=== PATIENT | female | born 2000 | race Hispanic/Latino ===

== ENCOUNTER 2022-01-26 08:15 | Inpatient (IN) | payer OTHER ==
[~2022-01-26 08:15] MED LIST: Bupivacaine 0.5% 10 ML VIAL ONE; Bupivacaine/Epinephrine 0.25% 30 ML VIAL ONE; Lidocaine 2% 10 ML INJ ONE
[2022-01-26] MEDS ORDERED: hydrALAZINE 20 MG/ML VIAL SLOW IVP PRN ×2 (10:07→13:29)
[2022-01-26 10:10] VITALS: BMI 29.2
[2022-01-26] MEDS ORDERED: Lactated Ringer's 1,000 ML IV SCH (10:30)
[2022-01-26 10:34] LABS: Fetal Membranes Rupture No Membranes Rupture (No Rupture)
[2022-01-26] MEDS ORDERED: Carboprost 250 MCG/ML AMP IM PRN (13:29)
[2022-01-26] MEDS ORDERED: Misoprostol 200 MCG TAB PR PRN (13:29)
[2022-01-26] MEDS ORDERED: Lidocaine 1% (PF) 30 ML VIAL SC PRN (13:29)
[2022-01-26] MEDS ORDERED: Diphenoxylate HCl/Atropine Tablet PO PRN (13:29)
[2022-01-26] MEDS ORDERED: Methylergonovine 0.2 MG/ML VIAL IM PRN (13:29)
[2022-01-26] MEDS ORDERED: Promethazine HCl 25 MG/ML VIAL IM PRN ×2 (13:29→22:00)
[2022-01-26] MEDS ORDERED: Ondansetron PF 4 MG/2 ML Vial IVP PRN ×2 (13:29→22:00)
[2022-01-26] MEDS ORDERED: NS w/ Oxytocin 30 units 500 ML IV SCH ×2 (13:30)
[2022-01-26 14:24] LABS: Hemoglobin 11.3 g/dL (12.0-15.5); Mean Corpuscular HGB CONC 32.1 g/dL (32.0-36.0); Mean Corpuscular Hemoglobin 26.6 pg (27.0-33.0); Mean Corpuscular Volume 82.8 fl (81.6-98.3); Mean Platelet Volume 10.7 fl (7.4-10.4); Platelet Count 276 10x3/uL (150-450); RBC Distribution Width 18.2 % (11.5-14.5); Red Blood Cell (RBC) Count 4.25 10x6/uL (3.90-5.03); White Blood Cell (WBC) Count 8.7 10x3/uL (3.5-10.5)
[2022-01-26] MEDS: Misoprostol 100 MCG TAB VAG SCH (14:44)
[2022-01-26 15:00] LABS: Hep B Surf Ag Non-Reactive S/CO (NonReactive); Syphilis Antibody Nonreactive (Nonreactive); Syphilis Antibody Index 0.07 S/CO (<1.00 Non-Reactive)
[2022-01-26 15:02] LABS: HBSAg Index 0.16 S/CO (0-0.99)
[2022-01-26 15:10] LABS: SARS-CoV-2 NAA Rapid Test Not Detected (NotDetected)
[2022-01-26] MEDS ORDERED: Acetaminophen 500 MG TAB PO SCH (18:15)
[2022-01-26] MEDS: Butorphanol Tartrate 1 MG/ML VIAL SLOW IVP PRN ×2 (19:39→21:01)
[2022-01-26] MEDS ORDERED: Fentanyl 2 mcg/Bup 0.1% Cadd 100 ML ONE (21:08)
[2022-01-26] MEDS: Lactated Ringer's 1,000 ML IV SCH (21:39)
[2022-01-26] MEDS ORDERED: Acetaminophen 325 MG TAB PO PRN (22:00)
[2022-01-26] MEDS ORDERED: diphenhydrAMINE 50 MG/ML VIAL IVP PRN (22:00)
[2022-01-26] MEDS ORDERED: Lactated Ringer's 500 ML IV PRN (22:00)
[2022-01-26] MEDS ORDERED: Moisturizing Cream (Eucerin) 113 GM JAR TOP PRN (22:00)
[2022-01-26] MEDS ORDERED: Communication Order-Pharmacy FS SCH (22:00)
[2022-01-26] MEDS ORDERED: ePHEDrine Sulfate 50 MG/10 ML VIAL SLOW IVP PRN (22:00)
[2022-01-26] MEDS ORDERED: Naloxone HCl 0.4 mg/ml Vial IVP PRN ×2 (22:00)
[2022-01-27] MEDS: Fentanyl 2 mcg/Bupivacaine 0.1% Cassette 100 ML EPIDURAL SCH ×2 (04:16→11:05)
[2022-01-27] MEDS: Lactated Ringer's 1,000 ML IV SCH ×2 (05:37→19:53)
[2022-01-27] MEDS ORDERED: Fentanyl 2 mcg/Bup 0.1% Cadd 100 ML ONE (11:05)
[2022-01-27] MEDS ORDERED: Ampicillin 2 GM VIAL ONE (11:06)
[2022-01-27] MEDS ORDERED: ceFAZolin 2 GM/Dextrose 50 ML IVPB ONE ×2 (11:43→16:49)
[2022-01-27] MEDS ORDERED: Azithromycin 500 MG VIAL ONE (11:43)
[2022-01-27] MEDS ORDERED: Ampicillin 2 GM in Sodium Chloride 0.9% 100 ML IVPB SCH (12:00)
[2022-01-27] MEDS ORDERED: AMPicillin 2 MG in Syringe 0 ML SLOW IVP SCH (12:00)
[2022-01-27] MEDS ORDERED: Naloxone HCl 0.4 mg/ml Vial IV PRN (12:08)
[2022-01-27] MEDS ORDERED: Ondansetron PF 4 MG/2 ML Vial IVP PRN (12:08)
[2022-01-27] MEDS ORDERED: Promethazine HCl 25 MG/ML VIAL IM PRN (12:08)
[2022-01-27] MEDS ORDERED: Moisturizing Cream (Eucerin) 113 GM JAR TOP PRN (12:08)
[2022-01-27] MEDS ORDERED: diphenhydrAMINE 50 MG/ML VIAL IVP PRN (12:08)
[2022-01-27] MEDS ORDERED: Promethazine HCl 25 MG SUPP PR PRN (12:08)
[2022-01-27] MEDS ORDERED: Naloxone HCl 0.4 mg/ml Vial IVP PRN ×2 (12:08)
[2022-01-27] MEDS ORDERED: Fentanyl 100 MCG/2 ML VIAL SLOW IVP PRN (12:09)
[2022-01-27] MEDS ORDERED: Meperidine HCl/PF 25 MG/ML VIAL SLOW IVP PRN (12:09)
[2022-01-27] MEDS ORDERED: Ondansetron HCl/PF 4 MG/2 ML Vial IVP PRN (12:09)
[2022-01-27] MEDS ORDERED: Communication Order-Pharmacy FS SCH (12:15)
[2022-01-27] MEDS ORDERED: Ketorolac Tromethamine 30 MG/ML VIAL IVP SCH (12:15)
[2022-01-27] MEDS ORDERED: Phenylephrine 40 MG/NS 250 ML 250 ML ONE (12:19)
[2022-01-27] MEDS ORDERED: Morphine PF 10 MG/10 ML VIAL ONE (12:20)
[2022-01-27] MEDS ORDERED: Oxytocin 10 UNITS/ML VIAL ONE (12:26)
[2022-01-27] MEDS ORDERED: Ondansetron PF 4 MG/2 ML Vial ONE (12:27)
[2022-01-27] MEDS ORDERED: Esmolol 100 MG/10 ML VIAL ONE (12:27)
[2022-01-27] MEDS ORDERED: Dexamethasone 4 mg/ml Vial ONE (12:27)
[2022-01-27] MEDS ORDERED: Azithromycin 500 MG in Sodium Chloride 0.9% 250 ML 250 ML IVPB SCH (12:30)
[2022-01-27] MEDS ORDERED: Ketorolac Tromethamine 30 MG/ML VIAL ONE (13:07)
[2022-01-27] MEDS ORDERED: Famotidine/PF 20 mg/2ml Vial ONE (13:21)
[2022-01-27] MEDS ORDERED: Methylergonovine 0.2 MG/ML VIAL ONE (13:21)
[2022-01-27] MEDS ORDERED: hydrALAZINE 20 MG/ML VIAL SLOW IVP PRN (15:40)
[2022-01-27] MEDS ORDERED: Simethicone Chewable 80 MG TAB PO PRN (15:40)
[2022-01-27] MEDS ORDERED: HYDROcodone/Acetaminophen 5/325 mg Tablet PO PRN (15:40)
[2022-01-27] MEDS ORDERED: NS w/ Oxytocin 30 units 500 ML IV SCH (15:40)
[2022-01-27] MEDS ORDERED: Boostrix 0.5 ML (Tdap) VIAL IM ONE (15:40)
[2022-01-27] MEDS ORDERED: Lanolin Ointment 7 GM TUBE TOP PRN (15:40)
[2022-01-27] MEDS: Ketorolac Tromethamine 30 MG/ML VIAL IVP PRN (17:57)
[2022-01-27] MEDS ORDERED: ceFAZolin 2 GM/Dextrose 50 ML 2 GM in Premix Bag 1 BAG IVPB SCH (18:00)
[2022-01-27] MEDS: Lactated Ringer's 500 ML IV SCH ×4 (19:43→19:46)
[2022-01-27] MEDS: Misoprostol 100 MCG TAB VAG SCH ×2 (19:53→19:54)
[2022-01-27] MEDS: Ferrous Sulfate 325 MG TAB PO SCH (21:46)
[2022-01-27] MEDS: Docusate 100 MG CAP PO SCH (21:46)
[2022-01-28] MEDS: Ketorolac Tromethamine 30 MG/ML VIAL IVP PRN (03:44)
[2022-01-28 04:55] LABS: Hemoglobin 7.9 g/dL (12.0-15.5); Mean Corpuscular HGB CONC 32.1 g/dL (32.0-36.0); Mean Corpuscular Hemoglobin 26.5 pg (27.0-33.0); Mean Corpuscular Volume 82.6 fl (81.6-98.3); Mean Platelet Volume 9.9 fl (7.4-10.4); Platelet Count 210 10x3/uL (150-450); RBC Distribution Width 18.6 % (11.5-14.5); Red Blood Cell (RBC) Count 2.98 10x6/uL (3.90-5.03)
[2022-01-28] MEDS: Docusate 100 MG CAP PO SCH ×2 (08:43→21:49)
[2022-01-28] MEDS: Ferrous Sulfate 325 MG TAB PO SCH ×2 (08:43→21:49)
[2022-01-28] MEDS: Prenatal Vitamin 1 TAB PO SCH (08:43)
[2022-01-28] MEDS: HYDROcodone/Acetaminophen 5/325 mg Tablet PO PRN ×3 (08:44→19:37)
[2022-01-28] MEDS: Ibuprofen 800 MG TAB PO SCH ×2 (13:01→21:49)
[2022-01-29] MEDS: HYDROcodone/Acetaminophen 5/325 mg Tablet PO PRN ×2 (00:58→05:44)
[2022-01-29] MEDS: Ibuprofen 800 MG TAB PO SCH (05:43)
[2022-01-29] MEDS: Ferrous Sulfate 325 MG TAB PO SCH (08:27)
[2022-01-29] MEDS: Prenatal Vitamin 1 TAB PO SCH (08:27)
[2022-01-29] MEDS: Docusate 100 MG CAP PO SCH (08:27)
[2022-01-29 11:23] VITALS: BP 135/70; TEMP 97.9
== END 2022-01-29 12:45 | disposition home or self-care (01) | DRG 786 ==
LOC: CSHLD/OP 08:15 → CSHLD 21:14 → CSHPP 01-27 15:11
PROVIDERS: ADMIT Obstetrics & Gynecology; ATTEND Obstetrics & Gynecology
PROC: 10D00Z1 Extraction of Products of Conception, Low, Open Approach (ICD-10-PCS; principal; 2022-01-27)
PROC: 3E0P7VZ Introduction of Hormone into Female Reproductive, Via Natural or Artificial Opening (ICD-10-PCS; 2022-01-27)
DX: O41.03X0 Oligohydramnios, third trimester, not applicable or unspecified (principal); O41.1230 Chorioamnionitis, third trimester, not applicable or unspecified; O33.9 Maternal care for disproportion, unspecified; O76 Abnormality in fetal heart rate and rhythm complicating labor and delivery; Z20.822 Contact with and (suspected) exposure to COVID-19; Z3A.39 39 weeks gestation of pregnancy; Z37.0 Single live birth; Z90.49 Acquired absence of other specified parts of digestive tract; D64.9 Anemia, unspecified; O90.81 Anemia of the puerperium; O32.4XX0 Maternal care for high head at term, not applicable or unspecified; O62.1 Secondary uterine inertia; O77.0 Labor and delivery complicated by meconium in amniotic fluid; O32.8XX0 Maternal care for other malpresentation of fetus, not applicable or unspecified
CPT/HCPCS: 51702; 76819; 82805; 84112; 85027; 86780; 86850; 86900; 86901; 87340; 88307; 99285; J0290; J0360; J0595; J0690; J1100; J1885; J2210; J2274; J2405; J2590; J3490; J7120; S0028; U0002

== ENCOUNTER 2023-01-22 22:43 | Emergency (ER) | payer OTHER ==
[2023-01-22 23:53] LABS: #Eosinphils 0.3 10x3/uL (0.0-0.5); #Monocytes 0.7 10x3/uL (0.0-1.1); #Neutrophils 4.6 10x3/uL (1.5-8.4); %Basophils 0.5 % (0.0-2.0); %Eosinophils 3.6 % (0.0-6.0); %Lymphocytes 32.8 % (18.0-47.0); %Monocytes 8.5 % (0.0-10.0); %Neutrophils 54.5 % (40.0-75.0); Hemoglobin 12.5 g/dL (12.0-15.5); Mean Corpuscular HGB CONC 33.7 g/dL (32.0-36.0); Mean Corpuscular Hemoglobin 29.1 pg (27.0-33.0); Mean Corpuscular Volume 86.5 fl (81.6-98.3); Mean Platelet Volume 8.6 fl (7.4-10.4); Platelet Count 327 10x3/uL (150-450); RBC Distribution Width 12.6 % (11.5-14.5); Red Blood Cell (RBC) Count 4.29 10x6/uL (3.90-5.03); White Blood Cell (WBC) Count 8.5 10x3/uL (3.5-10.5)
== END 2023-01-23 00:57 | disposition home or self-care (01) ==
LOC: CSHERS 22:43
DX: O20.8 Other hemorrhage in early pregnancy (principal); Z3A.09 9 weeks gestation of pregnancy
CPT/HCPCS: 76856; 84702; 85025; 86900; 86901

== ENCOUNTER 2023-05-28 01:05 | Emergency (ER) | payer OTHER ==
[2023-05-28] MEDS ORDERED: Acetaminophen 500 MG TAB ONE (01:32)
[2023-05-28 01:48] LABS: #Eosinphils 0.2 10x3/uL (0.0-0.5); #Neutrophils 6.5 10x3/uL (1.5-8.4); %Basophils 0.3 % (0.0-2.0); %Eosinophils 1.8 % (0.0-6.0); %Lymphocytes 28.2 % (18.0-47.0); %Monocytes 9.2 % (0.0-10.0); %Neutrophils 59.9 % (40.0-75.0); Hematocrit 28.7 % (34.9-44.5); Hemoglobin 9.2 g/dL (12.0-15.5); Mean Corpuscular HGB CONC 32.1 g/dL (32.0-36.0); Mean Corpuscular Hemoglobin 26.7 pg (27.0-33.0); Mean Corpuscular Volume 83.2 fl (81.6-98.3); Mean Platelet Volume 9.4 fl (7.4-10.4); Platelet Count 357 10x3/uL (150-450); RBC Distribution Width 12.9 % (11.5-14.5); Red Blood Cell (RBC) Count 3.45 10x6/uL (3.90-5.03); White Blood Cell (WBC) Count 10.8 10x3/uL (3.5-10.5)
[2023-05-28 02:00] LABS: ALT (SGPT) 10 U/L (8-55); AST (SGOT) 14 U/L (5-34); Albumin 3.5 g/dL (3.5-5.0); Alkaline Phosphatase 79 U/L (40-110); Anion Gap 13 mmol/L (10-20); BUN (Urea Nitrogen) 8 mg/dL (7.0-18.7); Bilirubin, Total 0.3 mg/dL (0.2-1.2); Calc. Creatinine Clearance 0 mL/min (70-130); Calcium 8.5 mg/dL (7.8-10.44); Carbon Dioxide 21 mmol/L (22-29); Chloride 107 mmol/L (98-107); Estimated GFR 135; Globulin 2.7 g/dL (2.4-3.5); Glucose 106 mg/dL (70-105); Potassium 3.7 mmol/L (3.5-5.1); Protein, Total 6.2 g/dL (6.0-8.3); Sodium 137 mmol/L (136-145)
[2023-05-28 02:06] LABS: Troponin I Less than 0.010 ng/mL (< 0.028)
[2023-05-28 02:27] LABS: SARS-CoV-2 NAA Rapid Test Not Detected (NotDetected)
== END 2023-05-28 04:17 | disposition home or self-care (01) ==
LOC: CSHERS 01:05
DX: O99.891 Other specified diseases and conditions complicating pregnancy (principal); R07.9 Chest pain, unspecified; R06.02 Shortness of breath; Z3A.27 27 weeks gestation of pregnancy; Z20.822 Contact with and (suspected) exposure to COVID-19
CPT/HCPCS: 71045; 80053; 84484; 85025; 93005; 96360

== ENCOUNTER 2023-08-14 12:06 | Day surgery (SDC) | payer OTHER ==
[2023-08-14 12:39] VITALS: BMI 32.5
[2023-08-14 13:30] LABS: Fetal Membranes Rupture No Membranes Rupture (No Rupture)
== END 2023-08-14 15:32 | disposition home or self-care (01) ==
LOC: CSHLD/OP 12:06
PROVIDERS: ATTEND Obstetrics & Gynecology
DX: O47.1 False labor at or after 37 completed weeks of gestation (principal); O41.8X30 Other specified disorders of amniotic fluid and membranes, third trimester, not applicable or unspecified; Z3A.38 38 weeks gestation of pregnancy
CPT/HCPCS: 84112

== ENCOUNTER 2023-08-15 07:56 | Day surgery (SDC) | payer OTHER ==
[2023-08-15 08:29] VITALS: BMI 32.5
[2023-08-15] MEDS ORDERED: hydrALAZINE 20 MG/ML VIAL SLOW IVP PRN (09:16)
[2023-08-15] MEDS ORDERED: Lactated Ringer's 1,000 ML IV SCH (09:45)
[2023-08-15] MEDS ORDERED: Morphine 4 MG/ML VIAL SLOW IVP SCH (10:00)
[2023-08-15 10:52] LABS: ALT (SGPT) 7 U/L (8-55); AST (SGOT) 17 U/L (5-34); Albumin 3.3 g/dL (3.5-5.0); Alkaline Phosphatase 181 U/L (40-110); Anion Gap 12 mmol/L (10-20); BUN (Urea Nitrogen) 7 mg/dL (7.0-18.7); Bilirubin, Total 0.3 mg/dL (0.2-1.2); Calc. Creatinine Clearance 183 mL/min (70-130); Calcium 8.6 mg/dL (7.8-10.44); Carbon Dioxide 20 mmol/L (22-29); Chloride 108 mmol/L (98-107); Estimated GFR 133; Globulin 3.1 g/dL (2.4-3.5); Glucose 76 mg/dL (70-105); Potassium 4.2 mmol/L (3.5-5.1); Protein, Total 6.4 g/dL (6.0-8.3); Sodium 136 mmol/L (136-145)
[2023-08-15 11:07] LABS: #Eosinphils 0.1 10x3/uL (0.0-0.5); #Monocytes 0.4 10x3/uL (0.0-1.1); %Basophils 0.4 % (0.0-2.0); %Eosinophils 0.7 % (0.0-6.0); %Lymphocytes 32.9 % (18.0-47.0); %Monocytes 6.4 % (0.0-10.0); %Neutrophils 58.4 % (40.0-75.0); Hematocrit 26.3 % (34.9-44.5); Hemoglobin 7.6 g/dL (12.0-15.5); Mean Corpuscular HGB CONC 28.9 g/dL (32.0-36.0); Mean Corpuscular Hemoglobin 20.8 pg (27.0-33.0); Mean Corpuscular Volume 71.9 fl (81.6-98.3); Platelet Count 274 10x3/uL (150-450); RBC Distribution Width 18.2 % (11.5-14.5); Red Blood Cell (RBC) Count 3.66 10x6/uL (3.90-5.03); White Blood Cell (WBC) Count 6.9 10x3/uL (3.5-10.5)
[2023-08-15 11:08] LABS: Anisocytosis SLIGHT = 6-15 cells (100X) (0-5/hpf); Microcytosis SLIGHT = 6-15 cells (100X) (0-5/hpf); Polychromasia SLIGHT = 2-3 cells (100X) (0-2/hpf)
[2023-08-15 11:09] LABS: Platelet Adequacy Comment Appears Adequate
[2023-08-15] MEDS ORDERED: Dextrose 5%-Lactated Ringers 1,000 ML IV SCH (12:15)
[2023-08-15 12:18] LABS: Bilirubin Neg (Negative); Blood, Urine Negative (Negative); Glucose, Urine (Dipstick) Normal (Negative); Ketone, Urine Negative (Negative); Leukocyte Negative (Negative); Nitrite Negative (Negative); Protein, Urine (Dipstick) 15 mg/dl (Neg-Trace); Urobilinogen Normal mg/dL (Less than 2)
[2023-08-15 12:21] LABS: Clarity Clear (Clear)
[2023-08-15 12:32] LABS: Bacteria/HPF None Seen HPF (None Seen); CAUTI Indications for Culture Pregnancy; RBC/HPF None Seen HPF (0-3); Squamous Epithelial 0-3 HPF (0-3); WBC/HPF None Seen HPF (0-3)
[2023-08-15 12:33] LABS: Urine Culture Reflex Yes Yes
== END 2023-08-15 12:50 | disposition home or self-care (01) ==
LOC: CSHLD/OP 07:56
PROVIDERS: ATTEND Obstetrics & Gynecology
DX: O47.1 False labor at or after 37 completed weeks of gestation (principal); O99.013 Anemia complicating pregnancy, third trimester; D50.9 Iron deficiency anemia, unspecified; Z90.89 Acquired absence of other organs; Z3A.38 38 weeks gestation of pregnancy
CPT/HCPCS: 36415; 76819; 80053; 81001; 85025; 87086; J2270

== ENCOUNTER 2023-08-17 01:34 | Inpatient (IN) | payer OTHER ==
[2023-08-17] MEDS ORDERED: hydrALAZINE 20 MG/ML VIAL SLOW IVP PRN ×4 (02:14→05:34)
[2023-08-17] MEDS ORDERED: Carboprost 250 MCG/ML AMP IM PRN (02:19)
[2023-08-17] MEDS ORDERED: Diphenoxylate HCl/Atropine Tablet PO PRN (02:19)
[2023-08-17] MEDS ORDERED: Promethazine HCl 25 MG/ML VIAL IM PRN ×3 (02:19→04:54)
[2023-08-17] MEDS ORDERED: Ondansetron PF 4 MG/2 ML Vial IVP PRN ×4 (02:19→04:54)
[2023-08-17] MEDS ORDERED: Acetaminophen 500 MG TAB PO PRN (02:19)
[2023-08-17] MEDS ORDERED: Misoprostol 200 MCG TAB PR PRN (02:19)
[2023-08-17] MEDS ORDERED: Famotidine/PF 20 mg/2ml Vial SLOW IVP PRN ×2 (02:19→02:30)
[2023-08-17] MEDS ORDERED: Bicitra 30 ML UDCUP PO PRN ×2 (02:19→02:30)
[2023-08-17] MEDS ORDERED: Tranexamic Acid 1,000 MG/10 ML VIAL IVP PRN (02:19)
[2023-08-17] MEDS ORDERED: CEFAZOLIN 2 GM in Sodium Chloride 0.9% 100 ML IVPB SCH (02:30)
[2023-08-17] MEDS ORDERED: Oxytocin 30 units/NS 500 ML 500 ML IV SCH ×2 (02:30→02:45)
[2023-08-17] MEDS ORDERED: fentaNYL 50 mcg/mL 1 mL Vial ONE ×2 (02:40→04:54)
[2023-08-17] MEDS ORDERED: CEFAZOLIN 2 GM VIAL ONE (02:41)
[2023-08-17] MEDS ORDERED: Azithromycin 500 MG VIAL ONE (02:42)
[2023-08-17] MEDS ORDERED: Lactated Ringer's 1,000 ML IV SCH (02:45)
[2023-08-17 02:54] LABS: Hematocrit 25.7 % (34.9-44.5); Hemoglobin 7.6 g/dL (12.0-15.5); Mean Corpuscular HGB CONC 29.6 g/dL (32.0-36.0); Mean Corpuscular Hemoglobin 21.2 pg (27.0-33.0); Mean Corpuscular Volume 71.6 fl (81.6-98.3); Mean Platelet Volume 10.3 fl (7.4-10.4); Platelet Count 275 10x3/uL (150-450); RBC Distribution Width 18.4 % (11.5-14.5); Red Blood Cell (RBC) Count 3.59 10x6/uL (3.90-5.03); White Blood Cell (WBC) Count 7.9 10x3/uL (3.5-10.5)
[2023-08-17 03:24] LABS: HBSAg Index 0.42 S/CO (0-0.99); Hep B Surf Ag - L&D Non-Reactive S/CO (NonReactive)
[2023-08-17 03:26] LABS: Syphilis Antibody Nonreactive (Nonreactive); Syphilis Antibody Index 0.07 S/CO (<1.00 Non-Reactive)
[2023-08-17] MEDS ORDERED: Oxytocin 10 UNITS/ML VIAL ONE (03:52)
[2023-08-17] MEDS ORDERED: Morphine PF 10 MG/10 ML VIAL ONE (03:52)
[2023-08-17] MEDS ORDERED: Ondansetron PF 4 MG/2 ML Vial ONE (03:53)
[2023-08-17 04:10] LABS: HIV (1/2) Antibody/Antigen Non-Reactive (NonReactive); HIV 1/2 INDEX 0.16 S/CO (<1.00)
[2023-08-17] MEDS ORDERED: Famotidine/PF 20 mg/2ml Vial ONE (04:14)
[2023-08-17] MEDS ORDERED: HYDROmorphone 0.5 MG/0.5 ML SYRINGE SLOW IVP PRN (04:54)
[2023-08-17] MEDS ORDERED: fentaNYL 50 mcg/mL 1 mL Vial SLOW IVP PRN (04:54)
[2023-08-17] MEDS ORDERED: diphenhydrAMINE 50 MG/ML VIAL IVP PRN (04:54)
[2023-08-17] MEDS ORDERED: Naloxone HCl 0.4 mg/ml Vial IVP PRN ×2 (04:54)
[2023-08-17] MEDS ORDERED: Promethazine HCl 25 MG SUPP PR PRN (04:54)
[2023-08-17] MEDS ORDERED: Naloxone HCl 0.4 mg/ml Vial IV PRN (04:54)
[2023-08-17] MEDS ORDERED: Moisturizing Cream (Eucerin) 113 GM JAR TOP PRN (04:54)
[2023-08-17] MEDS ORDERED: Midazolam HCl 2 mg/2 ml Vial ONE (04:54)
[2023-08-17] MEDS ORDERED: Meperidine HCl/PF 25 MG/ML VIAL SLOW IVP PRN (04:54)
[2023-08-17] MEDS ORDERED: Ketorolac Tromethamine 30 MG/ML VIAL IVP SCH (05:00)
[2023-08-17] MEDS ORDERED: Communication Order-Pharmacy FS SCH (05:00)
[2023-08-17] MEDS ORDERED: Boostrix 0.5 ML (Tdap) VIAL (>/=7 yrs of age) IM ONE (05:34)
[2023-08-17] MEDS ORDERED: Bisacodyl 10 MG SUPP PR PRN (05:34)
[2023-08-17] MEDS ORDERED: Simethicone Chewable 80 MG TAB PO PRN (05:34)
[2023-08-17] MEDS: Lactated Ringer's 1,000 ML IV SCH ×2 (10:52→10:54)
[2023-08-17] MEDS: Docusate 100 MG CAP PO SCH ×2 (10:53→21:38)
[2023-08-17] MEDS: Ferrous Sulfate 325 MG TAB PO SCH ×2 (10:53→21:38)
[2023-08-17] MEDS: Prenatal Vitamin 1 TAB PO SCH (10:54)
[2023-08-17 11:15] LABS: Hematocrit 34.2 % (34.9-44.5); Hemoglobin 10.4 g/dL (12.0-15.5)
[2023-08-17] MEDS ORDERED: Zolpidem Tartrate 5 MG TAB PO PRN (17:00)
[2023-08-17] MEDS: Ketorolac Tromethamine 30 MG/ML VIAL IVP PRN (21:39)
[2023-08-18] MEDS: Ketorolac Tromethamine 30 MG/ML VIAL IVP PRN (03:18)
[2023-08-18 04:03] LABS: Hematocrit 30.6 % (34.9-44.5); Hemoglobin 9.8 g/dL (12.0-15.5); Mean Corpuscular Hemoglobin 23.4 pg (27.0-33.0); Mean Corpuscular Volume 73.2 fl (81.6-98.3); Mean Platelet Volume 10.1 fl (7.4-10.4); Platelet Count 202 10x3/uL (150-450); Red Blood Cell (RBC) Count 4.18 10x6/uL (3.90-5.03); White Blood Cell (WBC) Count 12.5 10x3/uL (3.5-10.5)
[2023-08-18] MEDS: Lactated Ringer's 1,000 ML IV SCH ×3 (07:20→16:56)
[2023-08-18] MEDS: Docusate 100 MG CAP PO SCH ×2 (09:22→20:23)
[2023-08-18] MEDS: Ferrous Sulfate 325 MG TAB PO SCH ×2 (09:22→20:23)
[2023-08-18] MEDS: Prenatal Vitamin 1 TAB PO SCH (09:22)
[2023-08-18] MEDS: HYDROcodone/Acetaminophen 5/325 mg Tablet PO PRN ×3 (09:22→20:24)
[2023-08-18] MEDS: Ibuprofen 800 MG TAB PO SCH ×2 (13:08→20:23)
[2023-08-19] MEDS: Lactated Ringer's 1,000 ML IV SCH (00:04)
[2023-08-19] MEDS: HYDROcodone/Acetaminophen 5/325 mg Tablet PO PRN ×2 (03:05→15:30)
[2023-08-19] MEDS: Ibuprofen 800 MG TAB PO SCH ×2 (06:26→14:00)
[2023-08-19] MEDS ORDERED: HYDROcodone/Acetaminophen 5/325 mg Tablet PO PRN (07:08)
[2023-08-19 07:40] VITALS: BP 132/75; TEMP 98
[2023-08-19] MEDS: Ferrous Sulfate 325 MG TAB PO SCH (08:51)
[2023-08-19] MEDS: Prenatal Vitamin 1 TAB PO SCH (08:51)
[2023-08-19] MEDS: Docusate 100 MG CAP PO SCH (08:52)
== END 2023-08-19 15:50 | disposition home or self-care (01) | DRG 788 ==
LOC: CSHLD/OP 01:34 → CSHLD 02:21 → CSHPP 08:40
PROVIDERS: ADMIT Obstetrics & Gynecology; ATTEND Obstetrics & Gynecology
PROC: 10D00Z1 Extraction of Products of Conception, Low, Open Approach (ICD-10-PCS; principal; 2023-08-17)
PROC: 30233N1 Transfusion of Nonautologous Red Blood Cells into Peripheral Vein, Percutaneous Approach (ICD-10-PCS; 2023-08-17)
DX: O99.02 Anemia complicating childbirth (principal); Z3A.38 38 weeks gestation of pregnancy; Z37.0 Single live birth; O77.0 Labor and delivery complicated by meconium in amniotic fluid; D50.9 Iron deficiency anemia, unspecified; N73.6 Female pelvic peritoneal adhesions (postinfective); O99.892 Other specified diseases and conditions complicating childbirth
CPT/HCPCS: 36415; 36430; 85027; 86780; 86850; 86900; 86901; 87340; 87389; J1885; J2175; J2250; J2274; J2405; J2590; J3010; P9016; S0028

== ENCOUNTER 2023-08-24 13:32 | Emergency (ER) | payer OTHER ==
[2023-08-24 14:52] LABS: #Basophils 0.1 10x3/uL (0.0-0.2); #Eosinphils 0.2 10x3/uL (0.0-0.5); #Monocytes 0.5 10x3/uL (0.0-1.1); #Neutrophils 4.6 10x3/uL (1.5-8.4); %Basophils 0.8 % (0.0-2.0); %Eosinophils 2.7 % (0.0-6.0); %Lymphocytes 27.7 % (18.0-47.0); %Monocytes 6.1 % (0.0-10.0); %Neutrophils 62.3 % (40.0-75.0); Hematocrit 35.2 % (34.9-44.5); Hemoglobin 10.6 g/dL (12.0-15.5); Mean Corpuscular HGB CONC 30.1 g/dL (32.0-36.0); Mean Corpuscular Hemoglobin 23.4 pg (27.0-33.0); Mean Corpuscular Volume 77.7 fl (81.6-98.3); Mean Platelet Volume 9.6 fl (7.4-10.4); Platelet Count 430 10x3/uL (150-450); RBC Distribution Width 22.2 % (11.5-14.5); Red Blood Cell (RBC) Count 4.53 10x6/uL (3.90-5.03); White Blood Cell (WBC) Count 7.4 10x3/uL (3.5-10.5)
[2023-08-24 14:54] LABS: ALT (SGPT) 23 U/L (8-55); AST (SGOT) 22 U/L (5-34); Albumin 3.5 g/dL (3.5-5.0); Alkaline Phosphatase 101 U/L (40-110); Anion Gap 16 mmol/L (10-20); BUN (Urea Nitrogen) 15 mg/dL (7.0-18.7); Bilirubin, Total 0.4 mg/dL (0.2-1.2); Calc. Creatinine Clearance 0 mL/min (70-130); Calcium 8.8 mg/dL (7.8-10.44); Carbon Dioxide 24 mmol/L (22-29); Chloride 108 mmol/L (98-107); Estimated GFR 106; Globulin 3.2 g/dL (2.4-3.5); Glucose 69 mg/dL (70-105); Potassium 4.2 mmol/L (3.5-5.1); Protein, Total 6.7 g/dL (6.0-8.3); Sodium 144 mmol/L (136-145)
== END 2023-08-24 15:20 | disposition home or self-care (01) ==
LOC: CSHERS 13:32
DX: O86.00 Infection of obstetric surgical wound, unspecified (principal)
CPT/HCPCS: 36415; 80053; 85025; 99283

== ENCOUNTER 2025-06-16 21:59 | Day surgery (SDC) | payer OTHER ==
[2025-06-16 22:15] VITALS: BMI 29.2
[2025-06-16] MEDS ORDERED: hydrALAZINE 20 MG/ML VIAL SLOW IVP PRN (22:20)
[2025-06-16 22:51] LABS: Glucose, Urine (Dipstick) Normal (Negative); Leukocyte Negative (Negative); Protein, Urine (Dipstick) Negative (Neg-Trace); Specific Gravity, Urine 1.020 (1.005-1.030)
[2025-06-16 23:02] LABS: Bacteria/HPF Rare-Few HPF (None Seen); CAUTI Indications for Culture Pregnancy; RBC/HPF 0-3 HPF (0-3); WBC/HPF 0-3 HPF (0-3)
[2025-06-16 23:04] LABS: Urine Culture Reflex Yes Yes
== END 2025-06-17 00:50 | disposition home or self-care (01) ==
LOC: CSHLD/OP 21:59
PROVIDERS: ATTEND Family Medicine
DX: O36.8130 Decreased fetal movements, third trimester, not applicable or unspecified (principal); O47.03 False labor before 37 completed weeks of gestation, third trimester; O99.891 Other specified diseases and conditions complicating pregnancy; R35.0 Frequency of micturition; Z3A.33 33 weeks gestation of pregnancy; Z87.59 Personal history of other complications of pregnancy, childbirth and the puerperium; Z79.899 Other long term (current) drug therapy
CPT/HCPCS: 76819; 81001; 87086; 87480; 87510; 87660

== ENCOUNTER 2025-07-25 05:37 | Inpatient (IN) | payer OTHER ==
[2025-07-22 11:02] LABS: Hematocrit 32.4 % (34.9-44.5); Hemoglobin 9.7 g/dL (12.0-15.5); Platelet Count 352 10x3/uL (150-450)
[2025-07-22 11:36] LABS: Hep B Surf Ag Non-Reactive S/CO (NonReactive)
[2025-07-22 11:37] LABS: Syphilis Antibody Index 0.09 S/CO (<1.00 Non-Reactive)
[2025-07-25] MEDS ORDERED: Famotidine/PF 20 mg/2ml Vial SLOW IVP PRN (05:40)
[2025-07-25] MEDS ORDERED: Methylergonovine 0.2 MG/ML VIAL IM PRN ×2 (05:40→08:43)
[2025-07-25] MEDS ORDERED: hydrALAZINE 20 MG/ML VIAL SLOW IVP PRN ×2 (05:40→08:43)
[2025-07-25] MEDS ORDERED: Carboprost 250 MCG/ML AMP IM PRN (05:40)
[2025-07-25] MEDS ORDERED: Tranexamic Acid 1,000 MG/10 ML VIAL IVP PRN (05:40)
[2025-07-25] MEDS ORDERED: Acetaminophen 500 MG TAB PO PRN (05:40)
[2025-07-25] MEDS ORDERED: Bicitra 30 ML UDCUP PO PRN (05:40)
[2025-07-25] MEDS ORDERED: Diphenoxylate HCl/Atropine Tablet PO PRN ×2 (05:40)
[2025-07-25] MEDS ORDERED: Ondansetron PF 4 MG/2 ML Vial IVP PRN ×3 (05:40→09:33)
[2025-07-25] MEDS ORDERED: Oxytocin 30 units/NS 500 ML 500 ML IV SCH ×2 (05:45→08:45)
[2025-07-25 05:49] VITALS: BMI 31.8
[2025-07-25] MEDS ORDERED: HYDROmorphone 0.5 MG/0.5 ML SYRINGE SLOW IVP PRN (09:33)
[2025-07-25] MEDS ORDERED: Meperidine HCl/PF 25 MG (1 mL) VIAL SLOW IVP PRN (09:33)
[2025-07-25] MEDS ORDERED: Communication Order-Pharmacy FS SCH (09:45)
[2025-07-25] MEDS ORDERED: Ketorolac Tromethamine 30 MG (1 mL) VIAL IVP SCH (09:45)
[2025-07-25] MEDS: Ferrous Sulfate 325 MG TAB PO SCH (11:57)
[2025-07-25] MEDS: Ketorolac Tromethamine 30 MG (1 mL) VIAL IVP PRN (12:03)
[2025-07-25] MEDS: Ondansetron PF 4 MG/2 ML Vial IVP PRN (13:32)
[2025-07-26] MEDS: Oxytocin 10 UNITS/ML VIAL ONE ×2 (02:06)
[2025-07-26] MEDS: PHENYLEPHRINE-NS 100 MCG/ML 10 ML SYRINGE ONE (02:06)
[2025-07-26] MEDS: diphenhydrAMINE 50 MG/ML VIAL IVP PRN (03:21)
[2025-07-26 03:44] LABS: Hematocrit 26.2 % (34.9-44.5); Hemoglobin 7.8 g/dL (12.0-15.5); Mean Corpuscular Hemoglobin 22.2 pg (27.0-33.0); Mean Corpuscular Volume 74.6 fL (81.6-98.3); Platelet Count 263 10x3/uL (150-450); Red Blood Cell (RBC) Count 3.51 10x6/uL (3.90-5.03); White Blood Cell (WBC) Count 9.26 10x3/uL (3.5-10.5)
[2025-07-26] MEDS ORDERED: IRON SUCROSE COMPLEX 100 MG/5 ML SLOW IVP SCH (06:00)
[2025-07-26] MEDS: Acetaminophen 325 MG TAB PO PRN (07:32)
[2025-07-26] MEDS: HYDROcodone/Acetaminophen 5/325 mg Tablet PO PRN (09:09)
[2025-07-26] MEDS: Ibuprofen 800 MG TAB PO SCH (13:10)
[2025-07-27 08:12] VITALS: BP 112/77; TEMP 98
== END 2025-07-27 12:10 | disposition home or self-care (01) | DRG 787 ==
LOC: CSHLD 05:37 → CSHPP 11:02
PROVIDERS: ADMIT Family Medicine; ATTEND Family Medicine
PROC: 10D00Z1 Extraction of Products of Conception, Low, Open Approach (ICD-10-PCS; principal; 2025-07-25)
PROC: 3E03329 Introduction of Other Anti-infective into Peripheral Vein, Percutaneous Approach (ICD-10-PCS; 2025-07-25)
DX: O34.211 Maternal care for low transverse scar from previous cesarean delivery (principal); D62 Acute posthemorrhagic anemia; Z3A.39 39 weeks gestation of pregnancy; O99.02 Anemia complicating childbirth; Z37.0 Single live birth; O99.334 Smoking (tobacco) complicating childbirth; Z79.899 Other long term (current) drug therapy
CPT/HCPCS: 36415; 51702; 85014; 85018; 85027; 85049; 86780; 86850; 86900; 86901; 87340; J1200; J1885; J2274; J2405; J2590; J2916

== ENCOUNTER 2025-08-29 20:12 | Emergency (ER) | payer OTHER ==
[2025-08-29 21:18] LABS: #Basophils Less than 0.03 10x3/uL (0.0-0.2); #Eosinophils 0.14 10x3/uL (0.0-0.5); #Monocytes 0.33 10x3/uL (0.0-1.1); #Neutrophils 6.13 10x3/uL (1.5-8.4); %Basophils 0.2 % (0.0-2.0); %Eosinophils 1.5 % (0.0-6.0); %Lymphocytes 30.9 % (18.0-47.0); %Monocytes 3.4 % (0.0-10.0); %Neutrophils 63.7 % (40.0-75.0); Hematocrit 35.6 % (34.9-44.5); Hemoglobin 11.2 g/dL (12.0-15.5); Mean Corpuscular Hemoglobin 24.8 pg (27.0-33.0); Mean Corpuscular Volume 78.8 fL (81.6-98.3); Platelet Count 345 10x3/uL (150-450); Red Blood Cell (RBC) Count 4.52 10x6/uL (3.90-5.03); White Blood Cell (WBC) Count 9.63 10x3/uL (3.5-10.5)
[2025-08-29 21:33] LABS: Anion Gap 15 mmol/L (10-20); BUN (Urea Nitrogen) 17 mg/dL (7.0-18.7); Calc. Creatinine Clearance 0 mL/min (70-130); Calcium 9.2 mg/dL (7.8-10.44); Carbon Dioxide 23 mmol/L (22-29); Chloride 107 mmol/L (98-107); Glucose 93 mg/dL (70-105); Potassium 3.6 mmol/L (3.5-5.1); Sodium 141 mmol/L (136-145)
[2025-08-29 21:34] LABS: BHCG - Serum Negative (NEGATIVE); Pregs Control Bar Appear? YES (CONTROL BAR)
[2025-08-29 21:35] LABS: Pregs Control Background? CLEAR/WHITE (CLR/WHITE)
== END 2025-08-29 23:25 | disposition home or self-care (01) ==
LOC: CSHERS 20:12
DX: O72.2 Delayed and secondary postpartum hemorrhage (principal); N93.8 Other specified abnormal uterine and vaginal bleeding
CPT/HCPCS: 76856; 80048; 84703; 85025